=== PATIENT | male | born 1935 | race Caucasian/White ===

== ENCOUNTER → 2016-12-30 | Outpatient (CLI) | payer MEDICARE | END | disposition home or self-care (01) | LOC: PCVCCLINIC 12:12 | PROVIDERS: ATTEND Internal Medicine Cardiovascular Disease | DX: I25.10 Atherosclerotic heart disease of native coronary artery without angina pectoris (principal); I35.2 Nonrheumatic aortic (valve) stenosis with insufficiency; I10 Essential (primary) hypertension; E78.00 Pure hypercholesterolemia, unspecified; E11.9 Type 2 diabetes mellitus without complications; R00.1 Bradycardia, unspecified; Z79.82 Long term (current) use of aspirin; Z79.84 Long term (current) use of oral hypoglycemic drugs; Z79.899 Other long term (current) drug therapy | CPT/HCPCS: 80061; 93005; G0463 ==

== ENCOUNTER → 2017-07-07 | Outpatient (CLI) | payer MEDICARE ==
--- NOTE | 2017-07-07 15:47 | PCVCIMAG ---
APPROVED REPORT Study performed: 07/07/2017 13:08:41 EXAM: Comprehensive 2D, Doppler, and color-flow Echocardiogram Patient Location: Echo lab BSA: 1.99 HR: 57 bpmBP: 118/70 mmHg Rhythm: NSR Other Information Study Quality: Good Indications CAD Hypertension/HDD Hyperlipidemia. Aortic Stenosis. Diabetes. 2D Dimensions LVEF(%): 42.23 (>50%) IVSd: 10.28 (7-11mm)LVOT Diam: 20.73 (18-24mm) LVDd: 40.84 mm PWd: 12.09 (7-11mm)Ascending Ao: 39.40 (22-36mm) LVDs: 32.49 (25-40mm) Left Atrium: 32.20 (27-40mm) Aortic Root: 29.02 mm LV Single Plane 4CH: 59.95 % LV Single Plane 2CH: 49.07 %Pierre's LVEF: 54.51 % Biplane EF: 55.0 % Volumes Left Atrial Volume (Systole) Single Plane 4CH: 28.57 mLSingle Plane 2CH: 33.47 mL LA ESV Index: 17.00 mL/m2 Aortic Valve AoV Peak Dillon.: 2.44 m/s AO Peak Gr.: 23.77 mmHgLVOT Max P.49 mmHg AO Mean Gr.: 11.85 mmHgLVOT Mean P.24 mmHg AO V2 Mean: 1.61 m/sLVOT Max V: 1.06 m/s AO V2 VTI: 46.85 cmLVOT Mean V: 0.70 m/s BANG (VTI): 1.82 [id number] V1 VTI: 25.23 cm BANG Vmax: 1.47 cm2 AI Vmax: 4.23 m/sSV (LVOT): 85.07 mL AI [place]: 2.10 m/s2 AI PHT: 583.85 ms Mitral Valve E/A Ratio: 0.6 MV Decel. Time: 394.29 ms MV E Max Dillon.: 0.53 m/s MV A Dillon.: 0.94 m/s Pulmonary Valve PV Peak Gr.: 4.24 mmHg Left Ventricle The left ventricle is normal size. There is normal LV segmental wall motion. There is normal left ventricular wall thickness. Left ventricular systolic function is normal. The left ventricular ejection fraction is within the normal range. LVEF is 65%. The left ventricular diastolic function is normal. Right Ventricle The right ventricle is normal size. The right ventricular systolic function is normal. Atria The left atrium size is normal. The right atrium size is normal. Aortic Valve The aortic valve is normal in structure. Mild to moderate aortic regurgitation. Aortic Valve area is 1.3 cm2. Peak gradient of 24mmhg. Mean gradient of 12mmhg. Mitral Valve The mitral valve is normal in structure. There is no mitral valve regurgitation noted. No evidence of mitral valve stenosis. Tricuspid Valve The tricuspid valve is normal in structure. There is no tricuspid valve regurgitation noted. Pulmonic Valve The pulmonary valve is normal in structure. Trace pulmonic regurgitation. Great Vessels The aortic root is normal in size. Sinus of Valsalva measures 4.6cm. IVC is normal in size and collapses with >50% inspiration Pericardium There is no pericardial effusion. <Conclusion> The left ventricle is normal size. There is normal left ventricular wall thickness. LVEF is 65%. The left ventricular diastolic function is normal. The right ventricle is normal size. The left atrium size is normal. Mild to moderate aortic regurgitation. Aortic Valve area is 1.3 cm2. Peak gradient of 24mmhg. Mean gradient of 12mmhg. There is no mitral valve regurgitation noted. There is no tricuspid valve regurgitation noted. There is no pericardial effusion.
== END | disposition home or self-care (01) ==
LOC: PCVCIMAG 12:48
PROVIDERS: ATTEND Internal Medicine Cardiovascular Disease
DX: I35.2 Nonrheumatic aortic (valve) stenosis with insufficiency (principal); I25.10 Atherosclerotic heart disease of native coronary artery without angina pectoris; I10 Essential (primary) hypertension; E78.00 Pure hypercholesterolemia, unspecified; E11.9 Type 2 diabetes mellitus without complications; R55 Syncope and collapse; Z79.82 Long term (current) use of aspirin; Z79.899 Other long term (current) drug therapy; Z79.84 Long term (current) use of oral hypoglycemic drugs
CPT/HCPCS: 80061; 93005; 93306; G0463

== ENCOUNTER → 2018-02-17 | Outpatient (CLI) | payer MEDICARE | END | disposition home or self-care (01) | LOC: PCVCCLINIC 14:18 | DX: I25.10 Atherosclerotic heart disease of native coronary artery without angina pectoris (principal); I35.2 Nonrheumatic aortic (valve) stenosis with insufficiency; I10 Essential (primary) hypertension; E78.00 Pure hypercholesterolemia, unspecified; Z88.8 Allergy status to other drugs, medicaments and biological substances; Z79.84 Long term (current) use of oral hypoglycemic drugs; Z79.899 Other long term (current) drug therapy | CPT/HCPCS: 80061; 93005; G0463 ==

== ENCOUNTER → 2018-09-12 | Outpatient (CLI) | payer MEDICARE ==
--- NOTE | 2018-09-12 11:28 | PCVCIMAG ---
APPROVED REPORT Study performed: 09/12/2018 09:46:50 Exam: Stress Echocardiogram Indication: CAD s/p PCI, aortic stenosis Patient Location: Echo lab Stress Nurse: Lorena José RN Status: routine Ht: 6 ft 0 in HR: 63 bpm BP: 126/66 mmHg Rhythm: Sinus arrhythmia with 1st degree AV block Procedure The patient underwent an Exercise Stress Test using the Nazario Protocol. Blood pressure, heart rate, and EKG were monitored. An Echocardiogram was performed by office technician in four stages in quad fashion. At peak stress, four selected images were obtained and placed side by side with resting images for comparison. Stress Test Details Stress Test: Exercise stress testing was performed using a Nazario protocol. HR Resting HR: 63 bpmMax Heart Rate (APMHR): 136 bpm Max HR Achieved: 129 bpmTarget HR (85% APMHR): 115 bpm % of APMHR: 94 Recovery HR: 80 bpm HR response to stress: Normal HR response to stress BP Resting BP: 126/66 mmHg Max BP: 150/70 mmHg Recovery BP: 130/60 mmHg BP response to stress: Normal blood pressure response to stress. ECG Resting ECG: Sinus Rhythm Stress ECG: Sinus Rhythm ST Change: Normal Arrhythmia: None Recovery ECG: Sinus Rhythm Recovery ST Change: Normal Recovery Arrhythmia: None Clinical Reason for Termination: Maximal effort, Dyspnea Stress Symptoms: Fatigue Exercise duration: 7 min 16 sec Highest Stage Achieved: Stage 3: 3.4 mph at 14% grade. Exercise capacity: 10.1 METs Overall Exercise Capacity for Age: Good Scale: Active Angina Score: None Pre-Stress Echo The resting Echocardiogram showed normal left ventricular contractility with an estimated Ejection Fraction of about 50-55%. Normal wall motion in all segments on baseline images. Post-Stress Echo The stress Echocardiogram showed normal left ventricular contractility with an estimated Ejection Fraction of about 60-65%. Normal augmentation of wall motion in all segments on post stress images. Clinical No clinical or ECG evidence for ischemia. Conclusion Clinical Response: Non-ischemic Exercise Capacity: Superior Stress ECG Response: Non-ischemic Stress Echo Images: Non-ischemic The left ventricle is normal in size and wall thickness in both the rest and stress images. Moderate aortic sclerosis, minimal aortic stenosis with mild aortic insufficiency. Other Information Study Quality: Adequate <Conclusion> The left ventricle is normal in size and wall thickness in both the rest and stress images. Moderate aortic sclerosis, minimal aortic stenosis with mild aortic insufficiency.
== END | disposition home or self-care (01) ==
LOC: PCVCIMAG 09:56
PROVIDERS: ATTEND Internal Medicine Cardiovascular Disease
DX: I35.2 Nonrheumatic aortic (valve) stenosis with insufficiency (principal); I25.10 Atherosclerotic heart disease of native coronary artery without angina pectoris; E11.9 Type 2 diabetes mellitus without complications; I10 Essential (primary) hypertension; R42 Dizziness and giddiness; I77.810 Thoracic aortic ectasia; R00.1 Bradycardia, unspecified; I47.1 Supraventricular tachycardia
CPT/HCPCS: 93325; 93351

== ENCOUNTER → 2019-05-03 | Outpatient (CLI) | payer MEDICARE ==
--- NOTE | 2019-05-03 17:17 | PCVCIMAG ---
APPROVED REPORT Study performed: 05/03/2019 09:47:20 EXAM: Comprehensive 2D, Doppler, and color-flow Echocardiogram Patient Location: Echo lab Status: routine BSA: 1.99 HR: 118 bpmBP: 128/78 mmHg Rhythm: Tachycardia Other Information Study Quality: Adequate Risk Factors: Cardiac Risk Factors: HTN, Hyperlipidemia Indications CAD stent 2D Dimensions IVSd: 12.19 (7-11mm)LVOT Diam: 17.18 (18-24mm) LVDd: 35.93 mm PWd: 11.44 (7-11mm)Ascending Ao: 36.45 (22-36mm) LVDs: 34.03 (25-40mm) Left Atrium: 39.00 (27-40mm) Aortic Root: 32.86 mm LV Single Plane 2CH: 52.13 % Volumes Left Atrial Volume (Systole) Single Plane 4CH: 40.42 mLSingle Plane 2CH: 22.76 mL LA ESV Index: 17.00 mL/m2 Aortic Valve AoV Peak Dillon.: 1.53 m/s AO Peak Gr.: 9.34 mmHgLVOT Max P.01 mmHg LVOT Max V: 0.84 m/s BANG Vmax: 1.28 cm2 AI Vmax: 3.38 m/s AI [place]: 2.05 m/s2 AI PHT: 479.92 ms Mitral Valve E/A Ratio: 1.8 MV Decel. Time: 155.14 ms MV E Max Dillon.: 0.88 m/s MV A Dillon.: 0.49 m/s TDI E/Lateral E': 17.60E/Medial E': 17.60 Medial E' Dillon.: 0.05 m/s Lateral E' Dillon.: 0.05 m/s Left Ventricle The left ventricle is normal size. There is normal LV segmental wall motion. There is normal left ventricular wall thickness. Left ventricular systolic function is normal. The left ventricular ejection fraction is within the normal range. LVEF is 50-55%. Right Ventricle The right ventricle is normal size. The right ventricular systolic function is normal. Atria The left atrium size is normal. The right atrium size is normal. Aortic Valve The Aortic valve is sclerotic. Trace to mild aortic regurgitation. Dilated at sinsus of valsalva measuring 4.5cm. Aortic valve calculated 1.3cm2. Minimal aortic stenosis. Mitral Valve The mitral valve is normal in structure. There is no mitral valve regurgitation noted. No evidence of mitral valve stenosis. Tricuspid Valve The tricuspid valve is normal in structure. There is no tricuspid valve regurgitation noted. Pulmonic Valve The pulmonary valve is normal in structure. There is no pulmonic valvular regurgitation. Great Vessels The aortic root is normal in size. IVC is normal in size and collapses >50% with inspiration. Pericardium There is no pericardial effusion. <Conclusion> The left ventricle is normal size. LVEF is 50-55%. The right ventricle is normal size. The left atrium size is normal. The Aortic valve is sclerotic. Trace to mild aortic regurgitation. Dilated at sinsus of valsalva measuring 4.5cm. Aortic valve calculated 1.3cm2. Minimal aortic stenosis. There is no mitral valve regurgitation noted. There is no tricuspid valve regurgitation noted. The aortic root is normal in size. There is no pericardial effusion.
== END | disposition home or self-care (01) ==
LOC: PCVCIMAG 09:39
PROVIDERS: ATTEND Internal Medicine Cardiovascular Disease
DX: I35.2 Nonrheumatic aortic (valve) stenosis with insufficiency (principal); I25.10 Atherosclerotic heart disease of native coronary artery without angina pectoris; E78.00 Pure hypercholesterolemia, unspecified; E11.9 Type 2 diabetes mellitus without complications; I10 Essential (primary) hypertension; I47.1 Supraventricular tachycardia; I77.810 Thoracic aortic ectasia; R00.1 Bradycardia, unspecified; Z88.8 Allergy status to other drugs, medicaments and biological substances; Z95.5 Presence of coronary angioplasty implant and graft; Z72.89 Other problems related to lifestyle; Z79.82 Long term (current) use of aspirin; Z79.84 Long term (current) use of oral hypoglycemic drugs; Z79.899 Other long term (current) drug therapy
CPT/HCPCS: 36415; 80061; 93005; 93306; G0463